=== PATIENT | female | born 1950 | race Caucasian/White ===

== ENCOUNTER 2022-11-15 14:35 | Outpatient (CLI) | payer MEDICARE | END 2022-11-15 23:59 | disposition home or self-care (01) | LOC: RAD 14:35 | PROVIDERS: ATTEND Internal Medicine Cardiovascular Disease | DX: I08.8 Other rheumatic multiple valve diseases (principal); R06.02 Shortness of breath; E78.5 Hyperlipidemia, unspecified; R07.89 Other chest pain | CPT/HCPCS: 93306 ==